=== PATIENT | male | born 1975 | race Caucasian/White ===

== ENCOUNTER 2018-01-18 20:02 | Emergency (ER) | payer OTHER, SELFPAY ==
[2018-01-18 20:03] VITALS: BMI 32.2
[2018-01-18] MEDS ORDERED: Sodium Chloride 0.9% 1,000 ML IV STA (21:47)
[2018-01-18 22:54] LABS: BASO % 0.2 % (0.0-2.0); EOS # 0.1 K/uL (0.0-0.7); EOS % 1.5 % (0.0-4.0); HEMOGLOBIN 14.1 g/dL (12.0-18.0); LYMPH # 2.7 K/uL (1.0-4.3); LYMPH % 31.8 % (20.0-40.0); MEAN CELL VOLUME 88.2 fl (80.0-94.0); MEAN CORPUSCULAR HEMOGLOBIN 30.3 pg (27.0-31.0); MEAN CORPUSCULAR HGB CONC 34.4 g/dL (33.0-37.0); MEAN PLATELET VOLUME 9.4 fl (7.2-11.7); MONO # 0.9 K/uL (0.0-0.8); MONO % 10.4 % (0.0-10.0); NEUT # 4.8 K/uL (1.8-7.0); NEUT % 56.1 % (50.0-75.0); NRBC % 0.2 % (0.0-0.0); RBC 4.65 Mil/uL (4.40-5.90); WHITE BLOOD COUNT 8.5 K/uL (4.8-10.8)
[2018-01-18 22:58] LABS: URINE AMORPHOUS SEDIMENT RARE /ul (<OCC); URINE BILIRUBIN NEGATIVE (NEGATIVE); URINE BLOOD NEGATIVE (NEGATIVE); URINE CLARITY SLIGHTY-CLOUDY (Clear); URINE COLOR YELLOW (YELLOW); URINE GLUCOSE (UA) NEG (Normal); URINE LEUKOCYTE ESTERASE NEG Leu/uL (Negative); URINE PROTEIN NEGATIVE (NEGATIVE); URINE UROBILINOGEN 0.2-1.0 mg/dL (0.2-1.0)
[2018-01-18 23:07] LABS: ALB/GLOB RATIO 1.5 (1.0-2.1); ALBUMIN 4.3 g/dL (3.5-5.0); ALT/SGPT 42 U/L (21-72); AST/SGOT 31 U/L (17-59); BLOOD UREA NITROGEN 15 mg/dl (9-20); CALCIUM 9.2 mg/dL (8.4-10.2); GFR NON-AFRICAN AMERICAN > 60
--- NOTE | 2018-01-18 23:08 | ED PDOC ---
Syncope/Near Syncope/Dizziness Time Seen by Provider: 01/18/18 21:20 Chief Complaint (Nursing): Syncope Chief Complaint (Provider): Syncope History Per: Patient Onset/Duration Of Symptoms: Days (3) Additional Complaint(s): Patient is a 42 y/o male with no significant, medical history who presents to the ED with dizziness, onset x3 days ago. Patient states he developed dizziness which can best be described as vertiginous that is worsened with movement and changing position. He denies any associated nausea or vomiting. Patient also states that x2 days ago he fell and briefly lost consciousness stating he "blacked out" for a few seconds. Patient saw a nurse practitioner at [facility] and was referred to this ED. He denies any headache or head injury. Past Medical History Reviewed: Historical Data, Nursing Documentation, Vital Signs Vital Signs: Last Vital Signs Temp 98.5 F 01/18/18 20:29 Pulse 84 01/18/18 20:29 Resp 16 01/18/18 20:29 BP 126/74 01/18/18 20:29 Pulse Ox 98 01/18/18 20:29 - Medical History PMH: No Chronic Diseases - Surgical History Surgical History: No Surg Hx - Family History Family History: States: Unknown Family Hx - Social History Current smoker - smoking cessation education provided: No Alcohol: None Drugs: Denies - Home Medications Home Medications: Ambulatory Orders Medication Instructions Recorded Oxycodone HCl/Acetaminophen 1 tab PO Q6 PRN 08/07/15 [Percocet 325 mg-5 mg] Meclizine [Antivert] 25 mg PO Q6 PRN #12 tab 01/19/18 - Allergies Allergies/Adverse Reactions: Allergies Allergy/AdvReac Type Severity Reaction Status Date / Time No Known Allergies Allergy Verified 01/18/18 20:28 Review of Systems ROS Statement: Except As Marked, All Systems Reviewed And Found Negative Gastrointestinal: Negative for: Nausea, Vomiting Neurological: Positive for: Dizziness. Negative for: Headache Physical Exam - Reviewed Nursing Documentation Reviewed: Yes Vital Signs Reviewed: Yes - Physical Exam Appears: Positive for: Non-toxic, No Acute Distress Head Exam: Positive for: ATRAUMATIC, NORMAL INSPECTION, NORMOCEPHALIC Skin: Positive for: Normal Color, Warm, Dry Eye Exam: Positive for: EOMI, Normal appearance, PERRL Neck: Positive for: Normal, Painless ROM, Supple Cardiovascular/Chest: Positive for: Regular Rate, Rhythm. Negative for: Murmur Respiratory: Positive for: Normal Breath Sounds. Negative for: Respiratory Distress Gastrointestinal/Abdominal: Positive for: Normal Exam, Soft. Negative for: Tenderness Extremity: Positive for: Normal ROM. Negative for: Pedal Edema, Deformity Neurologic/Psych: Positive for: Alert, Oriented. Negative for: Motor/Sensory Deficits - Laboratory Results Result Diagrams: 01/18/18 22:50 01/18/18 22:50 - ECG O2 Sat by Pulse Oximetry: 98 (RA) Pulse Ox Interpretation: Normal Medical Decision Making Medical Decision Making: Time: 21:47 Impression: 42 y/o male with vertiginous dizziness and syncopal event Plan: --CT Head w/o contrast --EKG --CMP --Troponin I --CBC w/ diff --Antivert --IV fluids --UA Time: 2232 --CT Head FINDINGS: Brain: No significant white matter disease. Benign left frontal cortical calcification. Ventricles: Normal. No ventriculomegaly. Bones/joints: Normal. No acute fracture. Sinuses: Minimal mucosal thickening of the ethmoid air cells. Mastoid air cells: Normal as visualized. No mastoid effusion. Soft tissues: Normal. IMPRESSION: No acute intracranial findings. Time: 0025 --Upon provider reevaluation, patient is medically stable, reports markable improvement and requires no further treatment in the ED at this time. Patient will be discharged home. Counseling was provided and all questions were answered regarding diagnosis. There is agreement to discharge plan. Return if symptoms persist or worsen. Clinical Impression: Vertigo; Syncope Scribe Attestation: Documented by Donaldo Zapata, acting as a scribe for Elton Rincon MD Provider Scribe Attestation: All medical record entries made by the Scribe were at my direction and personally dictated by me. I have reviewed the chart and agree that the record accurately reflects my personal performance of the history, physical exam, medical decision making, and the department course for this patient. I have also personally directed, reviewed, and agree with the discharge instructions and disposition. Disposition - Clinical Impression Clinical Impression: Syncope, Vertigo - Patient ED Disposition Is Patient to be Admitted: No Counseled Patient/Family Regarding: Studies Performed, Diagnosis, Rx Given - Disposition Disposition: Routine/Home Disposition Time: 00:25 Condition: IMPROVED Prescriptions: Meclizine [Antivert] 25 mg PO Q6 PRN #12 tab PRN Reason: Dizziness Instructions: Vertigo (a Type of Dizziness), Syncope (Fainting) Forms: [facility] (Syrian) Print Language: PORTUGUESE
[2018-01-19 01:07] VITALS: BP 134/78; PULSE 81; RESP 18; TEMP 98.1; O2SAT 99
--- NOTE | 2018-01-19 07:27 | CARD ---
APPROVED REPORT Date of service: 01/18/2018 <Conclusion> Normal sinus rhythm Possible Right ventricular hypertrophy Abnormal ECG
--- NOTE | 2018-01-19 09:51 | CT ---
Date of service: 01/18/2018 PROCEDURE: CT HEAD WITHOUT CONTRAST. HISTORY: syncope COMPARISON: None available. TECHNIQUE: Axial computed tomography images were obtained through the head/brain without intravenous contrast. Radiation dose: Total exam DLP = 790 mGy-cm. This CT exam was performed using one or more of the following dose reduction techniques: Automated exposure control, adjustment of the mA and/or kV according to patient size, and/or use of iterative reconstruction technique. FINDINGS: HEMORRHAGE: No intracranial hemorrhage. BRAIN: No mass effect or edema. No atrophy or chronic microvascular ischemic changes. 3 mm benign-appearing calcification along the left frontal cortex is noted VENTRICLES: Unremarkable. No hydrocephalus. CALVARIUM: Unremarkable. PARANASAL SINUSES: Minimal ethmoidal sinus mucosal inflammatory changes. MASTOID AIR CELLS: Unremarkable as visualized. No inflammatory changes. OTHER FINDINGS: None. IMPRESSION: No intracranial hemorrhage or mass effect. Incidental benign 3 mm left frontal lobe cortex calcification. Of doubtful clinical significance Mild ethmoidal sinus mucosal thickening - mild inflammatory changes Concordant results (preliminary interpretation) provided by [facility].
== END 2018-01-19 01:07 | disposition home or self-care (01) ==
LOC: H.ER 20:02
DX: R55 Syncope and collapse (principal); R42 Dizziness and giddiness; R11.0 Nausea
CPT/HCPCS: 70450; 80053; 81003; 84484; 85025; 93005; 99285; J7030